=== PATIENT | female | born 1990 | race Caucasian/White ===

== ENCOUNTER 2018-06-05 03:08 | Inpatient (IN) ==
[2018-06-05] MEDS ORDERED: D5 1/2 NS 1000 ML 1,000 ML IV ONE (03:27)
[2018-06-05 03:30] VITALS: BMI 47.9
[2018-06-05 03:35] LABS: AMNISURE ROM TEST THERE IS A RUPTURE (NO RUPTURE)
[2018-06-05 03:49] LABS: BASOPHILS # (AUTO) 0.1 X10^3/uL (0.0-0.1); BASOPHILS % (AUTO) 0.8 % (0.2-1.0); EOSINOPHILS # (AUTO) 0.1 x10^3/uL (0.0-0.2); EOSINOPHILS % (AUTO) 0.4 % (0.9-2.9); HEMATOCRIT 42.4 % (36.0-47.0); HEMOGLOBIN 14.5 g/dL (12.0-16.0); MEAN CORPUSCULAR HEMOGLOBIN 29.3 pg (27.0-34.0); MEAN CORPUSCULAR HGB CONC 34.2 g/dL (33.0-35.0); MEAN CORPUSCULAR VOLUME 85.9 fL (80.0-100.0); MONOCYTES # (AUTO) 0.8 x10^3/uL (0.3-0.8); MONOCYTES % (AUTO) 5.2 % (0.0-13.0); NEUTROPHILS # (AUTO) 10.3 x10^3/uL (2.2-4.8); NEUTROPHILS % (AUTO) 67.6 % (42.0-75.0); PLATELET COUNT 291 X10^3/uL (150.0-450.0); RED BLOOD COUNT 4.94 X10^6/uL (3.5-5.4); RED CELL DISTRIBUTION WIDTH 14.1 % (11.6-16.5); WHITE BLOOD COUNT 15.2 X10^3/uL (3.6-10.0)
[2018-06-05 03:50] LABS: BLOOD UREA NITROGEN 7 mg/dL (7-18); CALCIUM 9.2 mg/dL (8.5-10.1); CARBON DIOXIDE 22.3 mmol/L (21-32); CHLORIDE 104 mmol/L (98-107); CREATININE 0.71 mg/dL (0.55-1.02); SODIUM 139 mmol/L (136-145); eGFR NON BLACK RACES > 60 (>60)
[2018-06-05] MEDS ORDERED: D5 1/2 NS 1000 ML 1,000 ML IV SCH (04:00)
[2018-06-05] MEDS ORDERED: ANCEF VIAL 1 GRAM ONE (04:06)
[2018-06-05] MEDS ORDERED: LR 1000 ML IV 1,000 ML IV ONE ×2 (04:06→04:07)
[2018-06-05] MEDS ORDERED: ANCEF VIAL 1 GRAM IVP ONE (04:06)
[2018-06-05] MEDS ORDERED: LR 1000 ML IV 1,000 ML IV SCH (04:06)
[2018-06-05] MEDS ORDERED: XYLOCAINE 1 % (PLAIN) ONE (04:07)
[2018-06-05] MEDS ORDERED: MARCAINE SPINAL ONE (04:08)
[2018-06-05] MEDS ORDERED: DILAUDID INJ ONE (04:08)
[2018-06-05] MEDS ORDERED: D5 1/2 NS 1L W PITOCIN 20 UNITS/L 20 UNITS/1,000 ML BAG IV ONE (04:08)
[2018-06-05 05:41] LABS: BILIRUBIN,URINE NEGATIVE (NEGATIVE); BLOOD/HEMOGLOBIN,URINE 2+ (NEGATIVE); GLUCOSE, URINE NEGATIVE (NEGATIVE); KETONES,URINE 2+ (NEGATIVE); LEUKOCYTE ESTERASE ,URINE NEGATIVE (NEGATIVE); NITRITES,URINE NEGATIVE (NEGATIVE); PROTEIN,URINE 3+ (NEGATIVE); UROBILINOGEN,URINE NORMAL (NORMAL)
[2018-06-05 05:46] LABS: APPEARANCE,URINE CLEAR (CLEAR); BACTERIA,URINE TRACE /HPF (NEGATIVE); COLOR,URINE YELLOW (YELLOW); MUCUS,URINE FEW /HPF (NEGATIVE); SQUAMOUS EPITHELIAL CELL,UR FEW /HPF (NEGATIVE)
[2018-06-05] MEDS ORDERED: ZOFRAN INJ 4 MG VIAL IVP PRN ×2 (06:24→06:43)
[2018-06-05] MEDS ORDERED: REGLAN INJ 10 MG VIAL IVP PRN ×2 (06:24→06:43)
[2018-06-05] MEDS ORDERED: PHENERGAN INJ 25 MG IVP PRN (06:24)
[2018-06-05] MEDS ORDERED: BENADRYL INJ 50 MG VIAL IVP PRN ×2 (06:24→06:43)
[2018-06-05] MEDS ORDERED: NARCAN INJ IVP PRN (06:43)
[2018-06-05] MEDS ORDERED: PERCOCET TAB 5/325 MG PO PRN ×2 (06:43→14:42)
[2018-06-05] MEDS ORDERED: MYLICON TAB 80 MG CHEW PO PRN (06:43)
[2018-06-05] MEDS ORDERED: TORADOL 30 MG VIAL IVP PRN (06:43)
[2018-06-05] MEDS ORDERED: ADACEL or BOOSTRIX TDaP VACCINE IM ONE ×2 (06:43→08:55)
[2018-06-05] MEDS ORDERED: D5 1/2 NS 1000 ML 1,000 ML with PITOCIN 20 UNITS IV SCH ×2 (07:00)
[2018-06-05] MEDS: PRENATAL PLUS PO SCH (09:02)
[2018-06-05] MEDS: ZANTAC PO SCH ×2 (09:02→20:15)
[2018-06-05] MEDS ORDERED: PITOCIN ONE (14:08)
[2018-06-05] MEDS ORDERED: NEO-SYNEPHRINE INJ ONE (15:56)
[2018-06-05] MEDS ORDERED: ZOFRAN INJ 4 MG VIAL ONE (15:56)
[2018-06-05] MEDS ORDERED: REGLAN INJ 10 MG VIAL ONE (15:56)
[2018-06-05] MEDS ORDERED: EPHEDRINE SULFATE INJ ONE (15:56)
[2018-06-05] MEDS ORDERED: DIPRIVAN VIAL ONE (15:56)
[2018-06-05] MEDS: COLACE CAP 100 MG PO SCH (20:15)
[2018-06-05] MEDS: BACTROBAN CREAM TOP SCH (22:40)
[2018-06-05] MEDS: MOTRIN TAB 800 MG PO PRN (22:41)
[2018-06-06 05:00] LABS: HEMATOCRIT 34.3 % (36.0-47.0); HEMOGLOBIN 11.7 g/dL (12.0-16.0)
[2018-06-06] MEDS: BACTROBAN CREAM TOP SCH (05:08)
[2018-06-06] MEDS: MOTRIN TAB 800 MG PO PRN (06:18)
[2018-06-06] MEDS: PRENATAL PLUS PO SCH (08:36)
[2018-06-06] MEDS: COLACE CAP 100 MG PO SCH (08:36)
[2018-06-06] MEDS: ZANTAC PO SCH (08:37)
[2018-06-06 10:26] VITALS: BP 120/65
== END 2018-06-06 11:35 | disposition home or self-care (01) | DRG 785 ==
LOC: ER 03:10 → LD 04:26 → MED/SURG 06:30
PROVIDERS: ADMIT Specialist; ATTEND Specialist
DX: E66.01 Morbid (severe) obesity due to excess calories; O32.1XX0 Maternal care for breech presentation, not applicable or unspecified; O34.211 Maternal care for low transverse scar from previous cesarean delivery; Z37.0 Single live birth; Z23 Encounter for immunization; Z3A.37 37 weeks gestation of pregnancy; N85.8 Other specified noninflammatory disorders of uterus; Z30.2 Encounter for sterilization
CPT/HCPCS: 36415; 51702; 80048; 81001; 84112; 85014; 85018; 85025; 86592; 86850; 86900; 86901; 90715; 96365; 96367; 99284; A4216; A4222; S0197; J0690; J1170; J1200; J2370; J2405; J2590; J2704; J2765; J3490; J7120; S5010